=== PATIENT | female | born 1985 | race Caucasian/White ===

== ENCOUNTER 2017-03-03 14:48 | Inpatient (IN) | payer OTHER ==
[~2017-03-03] VITALS: Ht 165.1 cm; Wt 54.0 kg
--- NOTE | ~2017-03-03 | PN ---
Unit #: [id number] #: [id number] Patient: MAURY PAYNE [id number] [facility] [address] [place] [address] [id number] MR#: [id number] NAME: MAURY PAYNE ROOM: [facility] Age: 31 Sex: F Admission Date: 03/03/2017 : 1985 Attending Physician: Jinny Murillo M.D. Admitting Physician: Jinny Murillo M.D. Primary Care Physician: Primary Care Physician Manju SIMON PROGRESS NOTES DATE OF SERVICE: 03/06/2017 SUBJECTIVE Ms. Payne is a 31-year-old white female with substance abuse and mood disorder, who was seen today and chart was reviewed and case was discussed with the staff. She has been anxious, withdrawn, depressed and seclusive to herself, and has not been able to function very well and has not been socializing or interacting. Meanwhile, she has been taking the medications and tolerating them fairly well. MENTAL STATUS EXAMINATION Young white female, who was casually dressed with a fair personal hygiene, appears to be in no acute distress or discomfort. She was awake and alert with intact orientation. Her mood was anxious with a congruent affect. She denies any suicidal or homicidal ideations. Her insight and judgment remains slightly impaired. TREATMENT AND PLAN 1. We will continue on her current medications and treatment protocol. We will monitor her response to medications and make further adjustments as needed. 2. We will continue to follow up. Dictated by... Elena Uribe/jacinta TD: 03/08/2017 05:21 JOB #: [id number] [facility] PROGRESS NOTES Page 1 of 1 X Jinny Murillo MD PROGRESS NOTE
--- NOTE | ~2017-03-03 | PN ---
Unit #: [id number] #: [id number] Patient: MAURY PAYNE [id number] [facility] [address] [place] [address] [id number] I MR#: [id number] NAME: MAURY PAYNE ROOM: [facility] Age: 31 Sex: F Admission Date: 03/03/2017 : 1985 Attending Physician: Jinny Murillo M.D. Admitting Physician: Jinny Murillo M.D. Primary Care Physician: Primary Care Physician Manju SIMON PROGRESS NOTES DATE 03/05/2017 DISCUSSION Ms. Payne is a 31-year-old white female who was seen today and chart was reviewed and case was discussed with the staff. She remains anxious, withdrawn, depressed and rather seclusive to herself and unable to carry on much conversation. Meanwhile, she has been taking medications and tolerating them fairly well with no reported side effects. MENTAL STATUS EXAMINATION Young white female who was casually dressed with fair personal hygiene appeared to be in no acute distress or discomfort. The patient was awake and alert on interaction with intact orientation. Her mood was anxious and depressed with congruent affect. Her speech was slow and goal-directed. She denies any suicidal or homicidal ideations. Her insight and judgement remains slightly impaired. TREATMENT PLAN 1. We will continue her on her current medications and treatment protocol. We will monitor her response to the medication and make further adjustments as needed. 2. We will continue to follow up. Dictated by... Elena Uribe/lucas TD: 03/08/2017 04:26 JOB #: [id number] Unit #: [id number] #: [id number] Patient: MAURY PAYNE PROGRESS NOTES Page 1 of 1 X Jinny Murillo MD PROGRESS NOTE
--- NOTE | ~2017-03-03 | HP ---
Unit #: [id number] #: [id number] Patient: MAURY PETIT [id number] [place] [address] [id number] I MR#: [id number] NAME: MAURY PETIT ROOM: [facility] Age: 31 Sex: F Admission Date: 03/03/2017 : 1985 Attending Physician: Jinny Murillo M.D. Admitting Physician: Jinny Murillo M.D. Primary Care Physician: Primary Care Physician No HISTORY AND PHYSICAL HISTORY OF PRESENT ILLNESS Maury is a 31 year old admitted to [address] [place] [address] because of her polysubstance abuse. PAST MEDICAL HISTORY 1. Long history of illicit substance abuse to include methamphetamine and heroin. She has used IV drugs. 2. 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 3. Hepatitis C. PAST SURGICAL HISTORY 1. Left leg. 2. Bilateral inguinal hernia repairs. 3. x1. 4. T and A. 5. Cholecystectomy. 6. Pelvic lap x2. ALLERGIES Prozac. She cannot tell me any kind of reaction. She says that DNA testing showed that she is allergic to Prozac. SOCIAL HISTORY Smokes 1 pack per day. Denies alcohol. Admits to a long history of illicit substance abuse to include marijuana, methamphetamine and heroin. She has used IV drugs in the past. FAMILY HISTORY Medically noncontributory. REVIEW OF SYSTEMS CONSTITUTIONAL: No fever or chills. HEENT: Denies any sore throat, ear pain or runny nose. CARDIOVASCULAR: Denies chest pain, irregular heart rhythm or palpitations. CHEST: Denies shortness of breath or cough. No hemoptysis. GASTROINTESTINAL: Denies nausea, vomiting, diarrhea or chronic constipation. ENDOCRINE: Denies history of increased thirst or urination. No recent significant weight loss or gain. GENITOURINARY: Denies dysuria, frequency, or hematuria. SKIN: Denies any rashes. HEMATOLOGIC: Denies history of increased bleeding or bruising. MUSCULOSKELETAL: Denies any hot, swollen joints. No generalized muscle Unit #: [id number] #: [id number] Patient: MAURY PETIT pain. NEUROLOGIC: Denies problems with vision or speech. No frequent, severe headaches. No numbness, tingling or weakness in any extremities. Denies loss of bladder or bowel control. CURRENT MEDICATIONS 1. Wellbutrin XL 300 mg daily. 2. Colace 100 mg daily. 3. Linzess 290 mcg daily. 4. Desyrel 200 mg q.h.s. 5. Seroquel 100 mg q.h.s. 6. BuSpar 30 mg b.i.d. 7. Topamax 100 mg b.i.d. 8. Nicotine patch 21 mg daily. 9. Milk of Magnesia p.r.n. 10. Maalox p.r.n. 11. Tylenol p.r.n. 12. NovoLog per sliding scale. Carb count, 1 unit of NovoLog for each 7 grams of carbs. 13. Levemir 22 units q.h.s. PHYSICAL EXAMINATION GENERAL: Alert, well-nourished, in no apparent distress. VITAL SIGNS: Blood pressure 120/70, heart rate 80, respirations 16, temperature 98.6. WEIGHT: 119. HEIGHT: 5 feet 5 inches. SKIN: Warm and dry without rash or lesion. HEENT: Normocephalic. TMs not viewed. Oral and nasal passages clear. Conjunctivae clear. PERRLA. EOMs intact. NECK: Supple without lymphadenopathy or thyromegaly. HEART: Regular rate and rhythm without murmur. LUNGS: Clear. ABDOMEN: Soft, nontender. : Not done. EXTREMITIES: No evidence of cyanosis, clubbing or edema. Moves all without focal deficit. NEUROLOGICAL: Grossly within normal limits. Cranial Nerves: II: Visual mitchell are intact. III, IV AND : Extraocular movements are intact. Pupils are equal, round and reactive to light. V: Facial sensation is grossly normal. VII: Facial movements and expression are normal. VIII: Auditory acuity grossly intact. IX, X: Uvula is midline. Phonation is normal. XI: Patient shrugs shoulders and turns head normally. XII: Tongue protrudes in the midline. Sensory and Motor Function: Sensory and motor sensation is grossly normal. Motor: moves all extremities well. Coordination: Gait is normal. Deep Tendon Reflexes: Intact. IMPRESSION Psychiatric admission. RECOMMENDATIONS PSYCHIATRIC: Per psychiatrist. MEDICAL: See no contraindication to participate in facility's activities. MEDICAL PROGNOSIS Unit #: [id number] #: [id number] Patient: MAURY PETIT. MEDICAL CONDITION Stable. Dictated by... Zahraa Jiménez P.A.-C. for Elena Zapata/angy TD: 03/04/2017 17:52 JOB #: [id number] HISTORY AND PHYSICAL Page 1 of 1 X Zahraa Jiménez X HISTORY AND PHYSICAL
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
--- NOTE | ~2017-03-03 | CO ---
Unit #: [id number] #: [id number] Patient: MAURY PETIT [id number] [place] [address] [id number] MR#: [id number] NAME: MAURY PETIT ROOM: [facility] Age: 31 Sex: F Admission Date: 03/03/2017 : 1985 Attending Physician: Jinny Murillo M.D. Primary Care Physician: Primary Care Physician No Consultation Date: 03/04/2017 CONSULTATION REPORT Maury is a 31-year-old with type 1 diabetes. This was addressed under her admission H and P dated 03/04/2017. Please see H and P dated 03/04/2017. Dictated by... Josette Thao/jacinta TD: 03/04/2017 17:58 JOB #: [id number] CONSULTATION REPORT Page 1 of 1 X Zahraa Jiménez CONSULTATION REPORT
--- NOTE | ~2017-03-03 | DS ---
Unit #: [id number] #: [id number] [facility] [id number] [facility] [address] [place] [address] [id number] I MR#: [id number] NAME: MAURY PAYNE ROOM: [facility] Age: 31 Sex: F Admission Date: 03/03/2017 : 1985 Discharge Date: Attending Physician: Jinny Murillo M.D. Primary Care Physician: Primary Care Physician No DISCHARGE SUMMARY IDENTIFYING DATA Ms. Payne is a 31-year-old single white female, who is a resident of [place], [place], and was self-referred to the hospital on voluntary basis with chief complaint of "I need to get some help. I'm depressed." DISCHARGE DIAGNOSES Psychiatric: Bipolar disorder, most recent episode depressed, recurrent, moderate, with psychosis; alcohol abuse, moderate; cannabis abuse, moderate; methamphetamine abuse, moderate. Medical: Diabetes mellitus and hepatitis C. Stressors: Moderate psychosocial stressors. HISTORY OF PRESENT ILLNESS Please see initial psychiatric evaluation for details. PAST PSYCHIATRIC HISTORY Please see initial psychiatric evaluation for details. PAST MEDICAL HISTORY Please see initial psychiatric evaluation for details. HOSPITAL COURSE The patient was admitted to the adult psychiatric unit at [facility] urszula Conde and was oriented to the hospital environment. Routine p.r.n. medications were initiated, and she was started back on her home medications and detox protocol was initiated and she was also started on Seroquel to help with psychosis and Wellbutrin as her home medications were maintained. She was taking the medications regularly and was tolerating them fairly well and was able to come out of the detox without any complications and was willing to continue treatment on an outpatient basis and as such, it was decided that she will be kept on her current medications and will be discharged home and will continue treatment on an outpatient basis. DISCHARGE MEDICATIONS Seroquel 100 mg at bedtime for bipolar, Linzess 290 mcg a day for IBS, Colace 100 mg a day for constipation, Wellbutrin XL 300 mg in the morning for depression, Topamax 100 mg b.i.d. for mood disorder, BuSpar 30 mg b.i.d. for anxiety, Levemir 22 units at bedtime for diabetes, Celebrex 200 mg a day for pain, and Protonix 40 mg in the morning for acid reflux. DISCHARGE CONDITION Stable. Unit #: [id number] #: [id number] Patient: MAURY PAYNE HARMONY Fair. Dictated by... Elena Uribe/jacinta TD: 03/07/2017 07:16 JOB #: [id number] DISCHARGE SUMMARY Page 1 of 1 X Jinny Murillo MD X DISCHARGE SUMMARY
[~2017-03-03 14:48] MED LIST: ALPRAZOLAM PO; BACTRIM DS TABL1 TAB PO; BUSPAR15 M1 DOB; EFFEXOR XR PO; HUMALOG; HUMULIN R100 U/ML SUBQ; INSULIN; KLONOPIN1 MG PO; LAMICTAL100 MG PO; LANTUS100 U/ML SUBQ; LATUDA80 MG PO; MULTI VITAMIN1 EACH PO; NEURONTIN300 MG PO; NOVOLOG100 U/M1; NOVOLOG100 U/M1 SUBQ; PRILOSEC20 M1 PO; PYRIDIUM PO; [UNRECOGNIZED DRUG - OTHER]
[2017-03-04 09:40] LABS: BASOPHIL# 0.1 X10e3 (0-0.3); BASOPHIL% 0.5 % (0-2.5); EOSINOPHIL# 0.2 X10e3 (0-0.7); EOSINOPHIL% 1.7 % (0.0-7.0); HEMATOCRIT 39.2 % (35.0-45.0); HEMOGLOBIN 13.6 gm/dL (12.0-16.0); LYMPHOCYTE# 2.8 X10e3 (1.0-3.5); LYMPHOCYTE% 28.9 % (17.0-45.0); MEAN CELL VOLUME 92.4 FL (83-96); MEAN CORPUSCULAR HEMOGLOBIN 32.1 PG (28-34); MEAN CORPUSCULAR HGB CONC 34.7 g/dL (30-36); MEAN PLATELET VOLUME 8.3 FL (6.5-11.5); MONOCYTE# 0.7 X10e3 (0-1.0); MONOCYTE% 7.5 % (3.0-12.0); NEUTROPHIL% 61.4 % (40-75); PLATELET COUNT 433 X10e3 (140-420); RED BLOOD COUNT 4.24 X10e (3.90-5.30); RED CELL DISTRIBUTION WIDTH 13.4 % (11.0-15.5); WHITE BLOOD COUNT 9.8 X10e3 (4.0-10.5)
[2017-03-04 09:50] LABS: DIFF IND NO
[2017-03-04 10:07] LABS: ALBUMIN SERUM 3.7 g/dL (3.5-5.0); BILIRUBIN,TOTAL 0.5 mg/dL (0.2-2.0); BUN/CREATININE RATIO 23.33; CREATININE SERUM 0.6 mg/dL (0.6-1.4); GLOM FILT RATE Estimated 122.3 mL/min (>60); POTASSIUM 4.6 mmol/L (3.5-5.1); PROTEIN TOTAL SERUM 6.3 g/dL (6.0-8.3)
[2017-03-04 13:02] LABS: AMPHETAMINE NEG (NEG); BARBITURATES NEG (NEG); BENZODIAZEPINES NEG (NEG); COCAINE NEG (NEG); MARIJUANA NEG (NEG); OPIATES NEG (NEG); TRICYCLIC ANTIDEPRESSANTS NEG (NEG); U METHADONE NEG (NEG)
[2017-03-04 13:05] LABS: URINE APPEARANCE CLEAR; URINE BILIRUBIN NEG (NEG); URINE BLOOD NEG (NEG); URINE COLOR YELLOW; URINE GLUCOSE >1000 MG/DL (NEG); URINE KETONE NEG (NEG); URINE LEUKOCYTE ESTERASE NEG (NEG); URINE NITRATE NEG (NEG); URINE PH 6.5 (5-8); URINE PROTEIN NEG (NEG); URINE SPECIFIC GRAVITY 1.031 (1.003-1.035); URINE UROBILINOGEN 0.2 MG/DL (NEG)
== END 2017-03-07 14:00 | disposition home or self-care (01) | DRG 885 ==
LOC: P2L 18:40
PROVIDERS: Psychiatry & Neurology Psychiatry
PROC: HZ2ZZZZ Detoxification Services for Substance Abuse Treatment (ICD-10-PCS; principal; 2017-03-04)
DX: F31.5 Bipolar disorder, current episode depressed, severe, with psychotic features (principal); E10.9 Type 1 diabetes mellitus without complications; F15.10 Other stimulant abuse, uncomplicated; F10.10 Alcohol abuse, uncomplicated; F12.10 Cannabis abuse, uncomplicated; B19.20 Unspecified viral hepatitis C without hepatic coma; Z79.4 Long term (current) use of insulin
CPT/HCPCS: 80053; 80307; 81003; 82947; 85025; J1815